=== PATIENT | female | born 1995 | race Caucasian/White ===

== ENCOUNTER 2021-01-19 13:34 | Emergency (ER) | payer OTHER, SELFPAY ==
[2021-01-19 13:42] VITALS: BP 144/78; PULSE 107; RESP 20; TEMP 36.7; O2SAT 99
--- NOTE | 2021-01-19 13:44 | ED.URI ---
HPI - URI/Sore Throat General Chief Complaint: Upper Respiratory Infection Stated Complaint: Sore Throat and congestion Source: patient and RN notes reviewed Limitations: no limitations History of Present Illness HPI Narrative: The unvaccinated patient, non-smoker/nondrinker G3, P2 EDC 24 March, presents with scratchy throat and congestion. Patient states she has 1/2-week of sore throat primarily and some nasal congestion. No fever, earache, cough, loss of taste/smell, CP, vomiting/diarrhea, frequency/dysuria, decreased activity, abdominal pain, vaginal discharge. Symptoms are mild, worse upon eating. history is remarkable for penicillin and latex allergy; also -induced hypertension- for which she is on aspirin. Related Data Home Medications Medication Instructions Recorded Confirmed PNV cmb#95-ferrous fumarate-FA 1 tablet PO DAILY 01/19/21 01/19/21 [] Allergies Allergy/AdvReac Type Severity Reaction Status Date / Time amoxicillin Allergy Intermediate rash Verified 01/19/21 13:54 latex Allergy Mild Swelling Verified 01/19/21 13:54 Review of Systems Review of Systems: General/Constitutional: No weight loss,fever Eyes: N0: Redness,discharge Ears/Nose/Throat: No: Epistaxis,ear discharge Respiratory: Denies: Hemoptysis Gastrointestinal: No Vomiting, Bleeding-rectal Skin: No Lumps, eruption Neurologic: No Focal Weakness,Sz Hematologic: Denies: Petechiae/Purpura Psychiatric: No: Suicida ideationl All Other Systems: Reviewed and Negative PMFSH Comments At time of signature, agree with nursing past medical, surgical, social and family history. There is no relevant family history pertinent to the presenting complaint Exam Narrative: General Appearance: Well appearing, Well nourished, gravid EYE: PERRLA, Conjunctiva clear Ears: Auditory canal normal, TM normal Nose: Rhinorrhea, Mucousal erythema Mouth/Throat: MM moist, Uvula midline, Pharyngeal erythema Neck: Supple, No adenopathy Respiratory: No respiratory distress, Breath sounds equal, Clear to auscultation Cardiovascular: RRR, No JVD GI/: Soft, nontender Musculoskeletal: Non tender, Normal strength Skin: Warm, Dry Neurological: A&O x3, CN II-XII intact Psychiatric: Normal mood, Normal affect Course Vital Signs Vital signs: Vital Signs Temperature 98.0 F 01/19/21 13:42 Pulse Rate 107 H 08/05/21 13:42 Respiratory Rate 20 01/19/21 13:42 Blood Pressure 144/78 H 01/19/21 13:42 Pulse Oximetry 99 01/19/21 13:42 Temperature 98.0 F 01/19/21 13:42 Pulse Rate 107 H 01/19/21 13:42 Respiratory Rate 20 01/19/21 13:42 Blood Pressure 144/78 H 01/19/21 13:42 Pulse Oximetry 99 01/19/21 13:42 MDM - URI/Sore Throat Lab Data Labs: Lab Results 01/19/21 Range/Units Unknown POC SARS CoV-2 Ag Negative (Negative) Strep Screen Presumptive Negative *(Reference Range: Negative)* Discharge Plan Discharge Clinical Impression: Swallowing painful, Elevated blood pressure affecting in third trimester, antepartum Complication of Qualifiers: Trimester: unspecified trimester Qualified Code(s): O26.90 - related conditions, unspecified, unspecified trimester Patient Disposition: Home, Self-Care Condition: Stable Instructions: Pharyngitis (ED) Additional Instructions: You can use OTC preparations like Flonase, etc. Do home checks of your blood pressure Prescriptions: New cefdinir 300 mg capsule 300 mg PO Q12H Qty: 10 RF: 0 lidocaine HCl [Lidocaine Viscous] 2 % solution 5 ml MUCOUS MEM QID PRN (Reason: pain) Qty: 100 RF: 0 No Action PNV cmb#95-ferrous fumarate-FA [] 28 mg iron- 800 mcg Tablet 1 tablet PO DAILY RF: 0 Other Ambulatory Orders: SARS-CoV-2 RNA, Qual RT-PCR (Routine) Location: Determined by Patient Ordered By: Brennen Pandya
== END 2021-01-19 14:48 | disposition home or self-care (01) ==
PROVIDERS: Emergency Provider Emergency Medicine
DX: O99.63 Diseases of the digestive system complicating the puerperium (principal); R13.10 Dysphagia, unspecified; O13.3 Gestational [pregnancy-induced] hypertension without significant proteinuria, third trimester; Z3A.31 31 weeks gestation of pregnancy; O26.93 Pregnancy related conditions, unspecified, third trimester; Z20.822 Contact with and (suspected) exposure to COVID-19
CPT/HCPCS: 87081; 87426; 87880; 99213; C9803; G0463

== ENCOUNTER 2021-02-27 18:10 | Observation (INO) | payer OTHER, SELFPAY ==
[2021-02-27] VITALS (15 sets, daily range): BP systolic 100–135; BP diastolic 56–82; PULSE 71–90
--- NOTE | ~2021-02-27 | US_ITS ---
US OB limited DATE: 02/27/2021 21:02 INDICATION: Fall. TECHNIQUE: Real-time imaging and Doppler analysis COMPARISON: None FINDINGS: There is a live alvarez intrauterine gestation, fetus in vertex presentation, longitudina l lie. heart rate of 142 bpm. Placenta is posterior; no evidence of abnormal retroplacental flu id collection. Three-vessel umbilical cord. There is a subjectively normal amount of amniotic fluid. IMPRESSION: No significant abnormality of the placenta Reviewed, dictated and finalized at [facility]. Reviewed, dictated and finalized at [facility].
[2021-02-28 00:01] VITALS: BP 122/68; PULSE 76
[2021-02-28 01:01] VITALS: BP 106/63; PULSE 82
[2021-02-28 03:01] VITALS: BP 98/59; PULSE 92
[2021-02-28 05:28] VITALS: BP 123/69; PULSE 80
[2021-02-28 08:04] VITALS: TEMP 36.3
[2021-02-28 08:49] VITALS: BMI 41.3
--- NOTE | 2021-02-28 08:53 | OBADM ---
This patient, Cuba Murguia, admitted to the OB room OB Post 112 for observation. Patient/family oriented to hospital policies and general routines including ID bracelet, bed and alarms, visiting hours, pain management, procedures, bathroom and other care routines, personal items, smoking policy, room service/diet, and visiting hours. Patient/Family are encouraged to report perceived risks to care and to ask questions if they do not understand what they are told or what they should do.
--- NOTE | 2021-02-28 08:58 | PC.NURSE ---
0800-KRadha RUEDA on unit, reviewed pt's fhr strip from over night. Discharge orders received.
--- NOTE | 2021-03-26 09:54 | PM.OBTRLD ---
OB - Triage/Final Diagnosis Visit Information Comments/Additional reasons for admission: I have assessed the risk for this patient, [place] Murgu[place], and determined that she would benefit from observation care. Evaluation Laboratory results: Laboratory Tests 02/27/21 19:39 Blood Type O Positive Antibody Screen Negative Final Diagnosis (1) Fall: Code(s): W19.XXXA - Unspecified fall, initial encounter Status: Acute
== END 2021-02-28 08:25 | disposition home or self-care (01) ==
PROVIDERS: Admitting Provider Obstetrics & Gynecology; Visit Provider Obstetrics & Gynecology
DX: Z04.3 Encounter for examination and observation following other accident (principal); O26.899 Other specified pregnancy related conditions, unspecified trimester; W19.XXXA Unspecified fall, initial encounter; Z3A.00 Weeks of gestation of pregnancy not specified
CPT/HCPCS: 36415; 76815; 86850; 86900; 86901; G0378; G0379

== ENCOUNTER 2021-03-05 13:19 | Outpatient (CLI) | payer OTHER, SELFPAY ==
[2021-03-05 14:10] VITALS: BP 130/74; PULSE 97
== END 2021-03-05 14:15 | disposition home or self-care (01) ==
LOC: ANHOBOP 13:56 → ANHLDR 13:57
PROVIDERS: Visit Provider Obstetrics & Gynecology
DX: O41.8X31 Other specified disorders of amniotic fluid and membranes, third trimester, fetus 1 (principal); Z3A.37 37 weeks gestation of pregnancy
CPT/HCPCS: 59025; 84112; 99199

== ENCOUNTER 2021-03-10 06:00 | Inpatient (IN) | payer OTHER, SELFPAY ==
[2021-03-10] VITALS (109 sets, daily range): BP systolic 96–149; BP diastolic 40–111; PULSE 65–108; RESP 16–18; TEMP 36.4–36.8; O2SAT 96–100; BMI 41.2
--- OUTSIDE RECORDS SUMMARY | 2021-03-10 06:04 | XMS_ITS | Encounter Summary ---
:1995 Author Reason for Visit None recorded. Assessment and Plan 1. Chronic hypertension complica ting AND/OR reason for care during ? non-stress test Discussion Note: None recorded.Patient educational handouts: No information available. Plan of Care Reminders Provider Appointments Ob Routine Wendie Tanner, 03/17/2021 CNM 2:45PM Lab None ? ? recorded. Referral None ? ? recorded. Procedures None ? ? recorded. Surgeries None ? ? recorded. Imaging Non-stress [facility] [facility] Test 03/07/2021 Medications Name Start Date ? ? Lidocaine Viscous 2 % mucosal solution ? GARGLE AND SPIT 5 ML BY MOUTH FOUR TIMES DAILY NEE DED ? Medications Administered None recorded. Vitals None recorded. Results Lab Results None recorded. Allergies Code Code System Name Reaction Severity Onset 723 RxNorm Amoxicillin Rash Mild ? Problems Name Status Onset Date Source ? Hypertensive Disorder Active ? ? Maternal Obesity Complicating , Childbirth Active ? ? and the Puerperium, Antepa
--- OUTSIDE RECORDS SUMMARY | 2021-03-10 06:04 | XMS_ITS ---
:1995 Author Care Team Providers Name Role Phone Flores Catherine Ashley Primary Care Provider Unavailable Allergies Code Code System Name Reaction Severity Status Onset 723 RxNorm Amoxicillin Rash Mild Active ? Medications Name Status Start Date Stop Date ? ? amoxicillin 875 mg tablet Completed 02/23/20142013 take 1 tablet by oral route every 12 hours cefdinir 300 mg capsule Completed ? 02/18/20 TAKE 1 CAPSULE BY MOUTH EVERY 12 HOURS clindamycin HCl 300 mg capsule Completed ? 0 08/08/2020 Depo-Provera 150 mg/mL intramuscular suspension Completed 10/04/2014 08/29/2017 inject 1 milliliter by intramuscular route every 3 months Depo-Provera 150 mg/mL intramuscular syringe Completed 08/29/2017 inject 1 milliliter by intramuscular route every 3 months Flagyl 500 mg tablet Completed ? 08/08/2020 Take 1 tablet every 12 hours by oral route for 7 days. Lidocaine Viscous 2 % mucosal solution Active ? Not available GARGLE AND SPIT 5 ML BY MOUTH FOUR TIMES DAILY NEEDED Active ? Not available One Daily 27 mg iron-800 mcg tablet Completed ? 12/23/2013 take 1 tablet by oral route every day Triveen-Duo DHA 29 mg-1 mg-400 mg oral pack Completed 02/201401/21/2014 take 2 by Oral route once for 30 days Tylenol 325 mg tablet Completed ? 04/02/2018 take 1 tablet by oral route every 4 hours as needed [employer]-PNV-DHA 28 mg iron-1 mg-200 mg capsule Completed 201708/08/2020 take 1 capsule by oral route every day Problems
--- OUTSIDE RECORDS SUMMARY | 2021-03-10 06:04 | XMS_ITS | Encounter Summary ---
:1995 Author Reason for Visit None recorded. Assessment and Plan 1. Placenta circumvallata ? US, obstetric, follow-up Discussion Note: None recorded.Patient educational handouts: No information available. Plan of Care Reminders Provider Appointments Ob Routine Wendie Tanner, 03/17/2021 CNM 2:45PM Lab None ? ? recorded. Referral None ? ? recorded. Procedures None ? ? recorded. Surgeries None ? ? recorded. Imaging [facility] Obstetric, Follow-up 03/03/2021 Medications Name Start Date ? ? Lidocaine [...] Childbirth Active ? ? and the Puerperium, Antepartum Procedures Date
--- OUTSIDE RECORDS SUMMARY | 2021-03-10 06:04 | XMS_ITS | Encounter Summary ---
:1995 Author Reason for Visit OB visit OB [id number] EDC 03/24/2021 LMP 06/17/2020 Assessment and Plan Assessment Note Patient is _37__weeks . Dis cussed plan. 1. Routine care Discussion Note: None recorded.Patient educational handouts: No information available. Plan of Care Reminders Provider Appointments Ob Routine Wendie Tanner, 03/17/2021 CNM 2:45PM Lab None ? ? recorded. Referral None ? ? recorded. Procedures None ? ? recorded. Surgeries None ? ? recorded. Imaging None ? ? recorded. Medications Name Start Date ? ? Lidocaine Viscous 2 % mucosal solution ? GARGLE AND SPIT 5 ML BY MOUTH FOUR TIMES DAILY NEE DED ? Medications Administered None recorded. Vitals Height Weight BMI Blood Pressure 5 ft 3.5 in 250 lbs 43.6 kg/m2 132/85 mm[Hg] Results Lab Results None recorded. Allergies Code Code System Name Reaction Severity Onset 723 RxNorm Amoxicillin Rash Mild ? Problems Name Status Onset Date Source ? Hypertensive Disorder Active ? ?
--- OUTSIDE RECORDS SUMMARY | 2021-03-10 06:05 | XMS_ITS | Encounter Summary ---
[...] ? recorded. Imaging Non-stress [facility] Test 02/24/2021 Medications Name Start Date ? ? Lidocaine Viscous 2 % mucosal solution ? GARGLE AND SPIT 5 ML BY MOUTH FOUR TIMES DAILY NEE DED ? Medications Administered None recorded. Vitals Blood Pressure 146/88 mm[Hg] Results Lab Results None recorded. Allergies Code Code System Name Reaction Severity Onset 723 RxNorm Amoxicillin Rash Mild ? Problems Name Status Onset Date Source ? Hypertensive Disorder Active ? ? Maternal Obesity
--- OUTSIDE RECORDS SUMMARY | 2021-03-10 06:05 | XMS_ITS | Encounter Summary ---
[...] Surgeries None ? ? recorded. Imaging Non-stress Linus lle Test 02/07/2021 Medications Name Start Date ? ? Lidocaine [...] Childbirth Active ? ? and the Puerperium, Antepart
--- OUTSIDE RECORDS SUMMARY | 2021-03-10 06:05 | XMS_ITS | Encounter Summary ---
:1995 Author Reason for Visit None recorded. Assessment and Plan 1. condition affecting obs tetrical care of mother ? US, obstetric, biophysical profile Discussion Note: None recorded.Patient educational handouts: No information available. Plan of Care Reminders Provider Appointments Ob Routine Wendie Tanner, 03/17/2021 CNM 2:45PM Lab None recorded. ? ? Referral None recorded. ? ? Procedures None recorded. ? ? Surgeries None recorded. ? ? [facility] Profile 02/24/2021 Medications Name Start Date ? ? [...]
--- OUTSIDE RECORDS SUMMARY | 2021-03-10 06:05 | XMS_ITS | Encounter Summary ---
[...] ? recorded. Imaging Non-stress Linus lle Test 02/03/2021 Medications Name Start Date ? ? Lidocaine [...]
--- OUTSIDE RECORDS SUMMARY | 2021-03-10 06:05 | XMS_ITS | Encounter Summary ---
:1995 Author Reason for Visit OB visit OB [id number] EDC 03/24/2021 LMP 06/17/2020 Assessment and Plan 1. Hypertensive disorder 2. Maternal obesity complicating , childbirth and the puerperium, antepartum Discussion Note: None recorded.Patient educational handouts: No [...] BMI Blood Pressure 5 ft 3.5 in 249 lbs 43.4 kg/m2 (1) 145/91 mm[H g] (2) 158/64 mm[Hg ] Results Lab Results None recorded. Allergies Code Code System Name Reaction Severity Onset 723 RxNorm Amoxicillin Rash Mild ? Problems Name Status Onset Date Source ?
--- OUTSIDE RECORDS SUMMARY | 2021-03-10 06:05 | XMS_ITS | Encounter Summary ---
:1995 Author Reason for Visit None recorded. Assessment and Plan 1. Maternal obesity complicating , childbirth and the puerperium, antepartum ? non-stress test Discussion Note: None recorded.Patient educational handouts: No information available. Plan of Care Reminders Provider Appointments Ob Routine Wendie Tanner, 03/17/2021 CNM 2:45PM Lab None ? ? recorded. Referral None ? ? recorded. Procedures None ? ? recorded. Surgeries None ? ? recorded. Imaging Non-stress [place]le Test 02/28/2021 Medications Name Start Date ? ? Lidocaine Viscous 2 % mucosal solution ? GARGLE AND SPIT 5 ML BY MOUTH FOUR TIMES DAILY NEE DED ? Medications Administered None recorded. Vitals Height Weight BMI Blood Pressure 5 ft 3.5 in 251 lbs 43.8 kg/m2 129/82 mm[Hg] Results Lab Results None recorded. Allergies Code Code System Name Reaction Severity Onset 723 RxNorm Amoxicillin Rash Mild ? Problems Name Status Onset Date Source ? Hypertensive Disorder Active ?
--- OUTSIDE RECORDS SUMMARY | 2021-03-10 06:05 | XMS_ITS | Encounter Summary ---
:1995 Author Reason for Visit OB visit OB [id number] EDC 03/24/2021 LMP 06/17/2020 Assessment and Plan Assessment Note Patient is __34_weeks . Dis cussed plan. 1. Routine care [...] BMI Blood Pressure 5 ft 3.5 in 248 lbs 43.2 kg/m2 133/88 mm[Hg] Results Lab Results None recorded. Allergies Code Code System Name Reaction Severity Onset 723 RxNorm Amoxicillin Rash Mild ? Problems Name Status Onset Date Source ? Hypertensive Disorder Active ? ?
--- OUTSIDE RECORDS SUMMARY | 2021-03-10 06:05 | XMS_ITS | Encounter Summary ---
:1995 Author Reason for Visit OB visit Assessment and Plan 1. Maternal obesity complicating , childbirth and the puerperium, antepartum 2. Hypertensive disorder Discussion Note: None recorded.Patient educational handouts: No information available. Plan of Care Reminders Provider Appointments Ob Routine Wendie austin Ashley Tanner, 03/17/2021 CNM 2:45PM Lab None ? [...] BMI Blood Pressure 5 ft 3.5 in 246 lbs 42.9 kg/m2 126/76 mm[Hg] Results Lab Results None recorded. Allergies Code Code System Name Reaction Severity Onset 723 RxNorm Amoxicillin Rash Mild ? Problems Name Status Onset Date Source ? Hypertensive Disorder Active ? ? Maternal Obesity Complicating , Childbirth Ac
--- OUTSIDE RECORDS SUMMARY | 2021-03-10 06:05 | XMS_ITS | Encounter Summary ---
[...] Surgeries None ? ? recorded. Imaging Non-stress e[place]ino lle Test 02/21/2021 Medications Name Start Date ? ? Lidocaine [...] Childbirth Active ? ? and the Puerperium, Antepar
--- OUTSIDE RECORDS SUMMARY | 2021-03-10 06:05 | XMS_ITS | Encounter Summary ---
[...] ? recorded. Imaging Non-stress Linus lle Test 02/10/2021 Medications Name Start Date ? ? Lidocaine Viscous 2 % mucosal solution ? GARGLE AND SPIT 5 ML BY MOUTH FOUR TIMES DAILY NEE DED ? Medications Administered None recorded. Vitals Height 5 ft 3.5 in Results Lab Results None recorded. Allergies Code Code System Name Reaction Severity Onset 723 RxNorm Amoxicillin Rash Mild ? Problems Name Status Onset Date Source ? Hypertensive Disorder Active ? ? Maternal Obesity Complicatin
--- OUTSIDE RECORDS SUMMARY | 2021-03-10 06:05 | XMS_ITS | Encounter Summary ---
:1995 Author Reason for Visit OB visit OB [id number] EDC 03/24/2021 LMP 06/17/2020 Assessment and Plan Assessment Note Patient is _35__weeks . Dis cussed plan. 1. Routine care [...] ft 3.5 in 250 lbs 43.6 kg/m2 131/82 mm[Hg] Results Lab Results None recorded. Allergies Code Code System Name Reaction Severity Onset 723 RxNorm Amoxicillin Rash Mild ? Problems Name Status Onset Date Source ? Hypertensive Disorder Active ? ?
--- OUTSIDE RECORDS SUMMARY | 2021-03-10 06:05 | XMS_ITS | Encounter Summary ---
[...] ? recorded. Imaging Non-stress Linus lle Test 02/14/2021 Medications Name Start Date ? ? Lidocaine Viscous 2 % mucosal solution ? GARGLE AND SPIT 5 ML BY MOUTH FOUR TIMES DAILY NEE DED ? Medications Administered None recorded. Vitals Blood Pressure 123/71 mm[Hg] Results Lab Results None recorded. Allergies Code Code System Name Reaction Severity Onset 723 RxNorm Amoxicillin Rash Mild ? Problems Name Status Onset Date Source ? Hypertensive Disorder Active ? ? Maternal Obesity C
--- OUTSIDE RECORDS SUMMARY | 2021-03-10 06:05 | XMS_ITS | Encounter Summary ---
[...] ? recorded. Imaging Non-stress [facility] lle Test 03/03/2021 Medications Name Start Date ? ? [...]
--- OUTSIDE RECORDS SUMMARY | 2021-03-10 06:05 | XMS_ITS | Encounter Summary ---
:1995 Author Reason for Visit None recorded. Assessment and Plan 1. Maternal obesity complicating , childbirth and the puerperium, antepartum ? US, obstetric, follow-up Discussion Note: None recorded.Patient educational handouts: No information available. Plan of Care Reminders Provider Appointments Ob Routine Wendie Tanner, 03/17/2021 CNM 2:45PM Lab None ? ? recorded. Referral None ? ? recorded. Procedures None ? ? recorded. Surgeries None ? ? recorded. Imaging , [facility] Obst[facility], Follow-up 02/03/2021 Medications Name Start Date ? ? [...] , Childbirth Active ? ? and the Puerper
--- OUTSIDE RECORDS SUMMARY | 2021-03-10 06:05 | XMS_ITS | Encounter Summary ---
[...] ? recorded. Imaging Non-stress [place] lle Test 02/17/2021 Medications Name Start Date ? ? Lidocaine [...]
--- OUTSIDE RECORDS SUMMARY | 2021-03-10 06:06 | XMS_ITS | Encounter Summary ---
:1995 Author Reason for Visit OB visit [id number] Assessment and Plan 1. Routine care Discussion Note: None recorded.Patient [...] Medications Administered None recorded. Vitals Height Weight Blood Pressure 5 ft 3.5 in 243 lbs 136/84 mm[Hg] Results Lab Results None recorded. Allergies Code Code System Name Reaction Severity Onset 723 RxNorm Amoxicillin Rash Mild ? Problems Name Status Onset Date Source ? Hypertensive Disorder Active ? ? Maternal Obesity Complicating , Childbirth Active ? ? and the Puerperium, Antepartum Procedures
--- OUTSIDE RECORDS SUMMARY | 2021-03-10 06:06 | XMS_ITS | Encounter Summary ---
:1995 Author Reason for Visit OB visit Assessment and Plan Assessment Note Patient is _27__weeks . Dis cussed plan. 1. Routine care [...] BMI Blood Pressure 5 ft 3.5 in 241 lbs 42 kg/m2 134/80 mm[Hg] Results Lab Results None recorded. Allergies Code Code System Name Reaction Severity Onset 723 RxNorm Amoxicillin Rash Mild ? Problems Name Status Onset Date Source ? Hypertensive Disorder Active ? ? Maternal Obesity Complicating , Childbirth Active
--- OUTSIDE RECORDS SUMMARY | 2021-03-10 06:06 | XMS_ITS | Encounter Summary ---
:1995 Author Reason for Visit None recorded. Assessment and Plan 1. Abnormal heart rate ? US, obstetric, biophysical profile + non-stress test Discussion Note: None recorded.Patient educational handouts: No information available. Plan of Care Reminders Provider Appointments Ob Routine Wendie Tanner, 03/17/2021 CNM 2:45PM Lab None recorded. ? ? Referral None recorded. ? ? Procedures None recorded. ? ? Surgeries None recorded. ? ? Imaging US, Obstetric, [facility] Biophysical Profile + 01/27/2021 Non-stress Test Medications Name Start Date ? ? Lidocaine [...]
--- OUTSIDE RECORDS SUMMARY | 2021-03-10 06:06 | XMS_ITS | Encounter Summary ---
[...] ? recorded. Imaging Non-stress Linus lle Test 01/31/2021 Medications Name Start Date ? ? Lidocaine Viscous 2 % mucosal solution ? GARGLE AND SPIT 5 ML BY MOUTH FOUR TIMES DAILY NEE DED ? Medications Administered None recorded. Vitals Blood Pressure 138/79 mm[Hg] Results Lab Results None recorded. Allergies Code Code System Name Reaction Severity Onset 723 RxNorm Amoxicillin Rash Mild ? Problems Name Status Onset Date Source ? Hypertensive Disorder Active ? ? Maternal Obesity C
--- OUTSIDE RECORDS SUMMARY | 2021-03-10 06:06 | XMS_ITS | Encounter Summary ---
[...] ? recorded. Imaging Non-stress [place] lle Test 01/27/2021 Medications Name Start Date ? ? Lidocaine Viscous 2 % mucosal solution ? GARGLE AND SPIT 5 ML BY MOUTH FOUR TIMES DAILY NEE DED ? Medications Administered None recorded. Vitals Blood Pressure (1) 142/91 mm[Hg] (2) 121/92 mm[Hg] (3) 132/84 mm[Hg] Results Lab Results None recorded. Allergies Code Code System Name Reaction Severity Onset 723 RxNorm Amoxicillin Rash Mild ? Problems Name Status Onset Date Source ?
--- OUTSIDE RECORDS SUMMARY | 2021-03-10 06:06 | XMS_ITS | Encounter Summary ---
:1995 Author Reason for Visit OB visit Assessment and Plan 1. Routine care Discussion [...] BMI Blood Pressure 5 ft 3.5 in 244 lbs 42.5 kg/m2 128/81 mm[Hg] Results Lab Results None recorded. Allergies Code Code System Name Reaction Severity Onset 723 RxNorm Amoxicillin Rash Mild ? Problems Name Status Onset Date Source ? Hypertensive Disorder Active ? ? Maternal Obesity Complicating , Childbirth Active ? ? and the Puerperium, Antepartum Procedures None recorded. Vaccine List None re
[2021-03-10] MEDS: LACTATED RINGERS 1,000 ML 125 ML IV CONT ×3 (06:45→09:34)
[2021-03-10] MEDS: OXYTOCIN 30 UNITS/NS 500 ML 30 UNITS/500 ML BAG IV CONT (06:45)
[2021-03-10 06:46] LABS: Basophils Percent Auto 0.3 % (0.2-1.2); Eosinophils Absolute Auto 0.3 K/mm3 (0-0.3); Eosinophils Percent Auto 2.7 % (0-4.4); Hematocrit 35.4 % (37.0-47.0); Hemoglobin 11.8 g/dL (12.0-15.0); Immature Granulocyte Absolute 0.04 K/mm3 (0.00-0.031); Immature Granulocyte Percent A 0.3 % (0-0.5); Lymphocytes Absolute Auto 2.26 K/mm3 (0.9-3.2); Lymphocytes Percent Auto 19.1 % (18.3-44.2); Mean Corpuscular HGB Conc 33.3 g/dl (32-36); Mean Corpuscular Hemoglobin 29.5 pg (26-34); Mean Corpuscular Volume 88.5 fl (80-100); Mean Platelet Volume 11.8 fl (7.4-10.4); Monocytes Absolute Auto 0.7 K/mm3 (0.1-0.6); Monocytes Percent Auto 5.6 % (2.6-8.5); Neutrophils Absolute Auto 8.6 K/mm3 (1.3-6.7); Platelet Count Result 176 k/mm3 (150-375); Red Cell Distribution Width 13.9 % (11.5-14.5); White Blood Count 11.9 K/mm3 (4.5-10.0)
[2021-03-10 06:58] LABS: Uric Acid 5.4 mg/dL (2.5-7.5)
--- NOTE | 2021-03-10 07:31 | WPDANESEPP ---
Anes - Eval Pre Procedure Procedure: labor pain management Date/Time: 03/10/21 07:31 Surgeon: Drea Preop Diagnosis: pain during labor Pre Op Diagnosis: IOL Patient Data Age: 25 Gender: F Height: 1.63 m Weight: 109 kg Last Vital Signs Pulse 88 03/10/21 07:16 BP 135/75 03/10/21 07:16 Allergies Allergy/AdvReac Type Severity Reaction Status Date / Time amoxicillin Allergy Intermediate rash Verified 01/19/21 13:54 latex Allergy Mild Swelling Verified 01/19/21 13:54 Home Medications Medication Instructions Recorded Confirmed Type PNV cmb#95-ferrous fumarate-FA 1 tablet PO DAILY 01/19/21 01/19/21 History [] ferrous sulfate 325 mg PO DAILY 02/28/21 02/28/21 History Laboratory Tests 03/10/21 03/10/21 03/10/21 06:19 06:19 06:19 WBC 11.9 K/mm3 H K/mm3 (4.5-10.0) RBC 4.00 M/mm3 L M/mm3 (4.2-5.4) Hgb 11.8 g/dL L g/dL (12.0-15.0) Hct 35.4 % L % (37.0-47.0) MCV 88.5 fl fl (80-100) MCH 29.5 pg pg (26-34) MCHC 33.3 g/dl g/dl (32-36) RDW 13.9 % % (11.5-14.5) Plt Count 176 k/mm3 k/mm3 (150-375) MPV 11.8 fl H fl (7.4-10.4) Immature Gran % (Auto) 0.3 % % (0-0.5) Neut % (Auto) 72.0 % % (45.5-73.1) Lymph % (Auto) 19.1 % % (18.3-44.2) Fisher % (Auto) 5.6 % % (2.6-8.5) Eos % (Auto) 2.7 % % (0-4.4) Baso % (Auto) 0.3 % % (0.2-1.2) Lymph # (Auto) 2.26 K/mm3 K/mm3 (0.9-3.2) Fisher # (Auto) 0.7 K/mm3 H K/mm3 (0.1-0.6) Eos # (Auto) 0.3 K/mm3 K/mm3 (0-0.3) Baso # (Auto) 0.0 K/mm3 K/mm3 (0.0-0.1) Abs Immat Gran (auto) 0.04 K/mm3 H K/mm3 (0.00-0.031) Absolute Neuts (auto) 8.6 K/mm3 H K/mm3 (1.3-6.7) Absolute Nucleated RBC 0.0 K/mm3 K/mm3 (0.0-0.012) Nucleated RBC % 0.0 % % (0.0-0.2) Uric Acid 5.4 mg/dL mg/dL (2.5-7.5) RPR Pending : gestational age (edc 03/24/21) Patient hx anesthesia problems: none Family hx anesthesia problems: none Results Review: All pre-operative results and documents have been reviewed as part of the pre-operative evaluation. [facility] Past Medical History Medical History (Updated 03/10/21 @ 07:33 by Liane Vaughn CRNA) Hypertension Family History Family History (Updated 02/28/21 @ 12:36 by Erorl Raines RN) Grandparent Diabetes mellitus Mother Diabetes mellitus Arthritis Social History Social History Smoking status: Never smoker Second hand tobacco smoke exposure: No Substance use: never Spiritual care concerns: No Exam Day of Procedure 03/10/21 07:31
--- NOTE | 2021-03-10 07:34 | WPDOBADMIT ---
Obstetrics - Admit Note Admission Note: record reviewed. No pertinent additions to the history and/or any subsequent changes in the physical findings that are not consistent with the expected course of the were found. CHTN, 38 weeks gestation, SVE /-2, AROM moderate amount of clear odorless fluid Additions to the history and/or subsequent changes in the physical findings follow. None.
[2021-03-10 12:44] LABS: Alanine Aminotransferase 12 U/L (4-35); Albumin Level 3.8 g/dL (3.5-5.1); Alkaline Phosphatase 86 U/L (38-126); Anion Gap 11 mmol/L (8-16); Aspartate Amino Transferase 23 U/L (14-36); Bilirubin,Total 0.5 mg/dL (0.2-1.3); Blood Urea Nitrogen 9 mg/dL (7-17); Calcium 8.9 mg/dL (8.4-10.2); Carbon Dioxide 18 mmol/L (22-30); Chloride 107 mmol/L (98-107); Estimated CRCL calculation 130 ml/min; Estimated Glomerular Filt Rate > 60; Glucose 105 mg/dL (65-110); Potassium 3.6 mmol/L (3.4-5.0); Sodium 136 mmol/L (137-145)
--- NOTE | 2021-03-10 13:25 | PM.OBPRVD ---
OB - Delivery Note Procedure Delivery date: 03/10/21 Procedure: vaginal delivery Intrapartal events: None Induction method: AROM and per pitocin protocol Delivery monitor: external FHT, external uterine and internal uterine Route of delivery: Episiotomy description: None Laceration Description: None Specimen: Yes Quantitative Blood Loss (ml): 85 Anesthesia type: Epidural Disposition: floor Baby Date of : 03/10/21 Time of : 13:16 Weeks of gestation at delivery: 38 Infant gender: Female Weight (pounds): 6 Weight (ounces): 10 presentation: vertex position: Right Occiput Anterior Placenta delivery description: Spontaneous cord vessel description: 3 Vessels and Clamped/Cut Narrative: mother and baby skin to skin delayed cord clamping x 3 minutes, in stable condition
[2021-03-10] MEDS: OXYTOCIN 30 UNITS/NS 500 ML 30 UNITS/500 ML BAG 125 UNITS IV CONT (13:40)
[2021-03-10 13:53] LABS: Rapid Plasma Reagin Non-Reactive (NonReactive)
[2021-03-10] MEDS: BENZOCAINE 20% AER SPR (*SP) 56 GM CAN 1 SPRAY TOPICAL (15:33)
[2021-03-10] MEDS: WITCH HAZEL 40 PADS 1 PAD TOPICAL (15:33)
[2021-03-10] MEDS: IBUPROFEN 600 MG TABLET PO (16:40)
--- NOTE | 2021-03-10 16:42 | OBPPTRN ---
1600-Patient transferred to post room #277 via wheelchair. Support person present. Oriented to unit, room, information board, rooming in, admission packet and security measures. Patient verbalizes understanding.
[2021-03-11 00:15] VITALS: BP 115/73; PULSE 62; RESP 18; TEMP 36.2; O2SAT 100
[2021-03-11] MEDS: IBUPROFEN 600 MG TABLET PO ×2 (01:52→09:04)
[2021-03-11 04:30] VITALS: BP 115/78; PULSE 70; RESP 18; TEMP 36.2; O2SAT 100
[2021-03-11 05:24] LABS: Hematocrit 31.9 % (37.0-47.0); Hemoglobin 10.6 g/dL (12.0-15.0)
[2021-03-11 08:00] VITALS: BP 122/70; PULSE 73; RESP 16; TEMP 36.4; O2SAT 99
--- NOTE | 2021-03-11 08:25 | P.PNOB_ITS ---
OB - PN: Subj Subjective Date/time seen: 03/11/21 08:25 Patient comments: no complaints and pain well controlled baby status: doing well and nursing well [place] feeding status: exclusively breast feeding Narrative: wants DC home later today OB - PN: Obj Data Labs CBC & Chem 7: 03/11/21 04:36 03/10/21 06:19 Labs: Laboratory Results - last 24 hr 03/10/21 03/10/21 03/10/21 06:19 06:19 06:19 Hgb Hct Sodium 136 L Potassium 3.6 Chloride 107 Carbon Dioxide 18 L Anion Gap 11 BUN 9 Creatinine 0.70 Estim Creat Clear Calc 130 Estimated GFR > 60 Glucose 105 Calcium 8.9 Total Bilirubin 0.5 AST 23 ALT 12 Alkaline Phosphatase 86 Total Protein 6.0 L Albumin 3.8 RPR Non-reactive Blood Type O Positive Antibody Screen Negative 03/11/21 04:36 Hgb 10.6 L Hct 31.9 L Sodium Potassium Chloride Carbon Dioxide Anion Gap BUN Creatinine Estim Creat Clear Calc Estimated GFR Glucose Calcium Total Bilirubin AST ALT Alkaline Phosphatase Total Protein Albumin RPR Blood Type Antibody Screen OB - PN A/P Assessment and Plan (1) , delivered: Code(s): O80 - Encounter for full-term uncomplicated delivery Status: Acute Plan day: 1 Plan: routine care and discharge home Time Spent With Patient Time: Total time spent is greater than 50% in coordination of care (as documented) at patient's floor/unit and/or counseling patient: Time with patient: less than 15 minutes Exam Narrative: NAD abdomen soft, nontender, fundus firm below the umbilicus Extremities nontender, 1+ edema
--- NOTE | 2021-03-11 08:27 | P.DS_ITS ---
DS: Admitting Diagnosis Discharge Date 03/11/2021 Admitting Diagnosis term IUP, cHTN DS: Discharge Diagnosis Discharge Diagnosis (1) , delivered: Code(s): O80 - Encounter for full-term uncomplicated delivery Status: Acute OB - DS: Summary OB Procedures : Ultrasound OB Procedures Intrapartum: Spontaneous Vag Delivery OB Procedures: : None Peripartum Data Delivery Method: Natural Vaginal complications: none Status at Discharge Functional status at discharge: independent ambulation Time Spent with Patient Time attestation: Total time spent providing and/or coordinating discharge services: Exam Narrative: NAD abdomen soft, appropriately tender Ext non tender, 1+ edema DS: Data Data Completed and Pending Pending studies at discharge: Pending at discharge 03/10/21 13:20 Surgical [PTH] Routine Labs on day of discharge: Labs from last 24 hours 03/11/21 03/10/21 03/10/21 04:36 06:19 06:19 Hgb 10.6 L Hct 31.9 L Sodium 136 L Potassium 3.6 Chloride 107 Carbon Dioxide 18 L Anion Gap 11 BUN 9 Creatinine 0.70 Estim Creat Clear Calc 130 Estimated GFR > 60 Glucose 105 Calcium 8.9 Total Bilirubin 0.5 AST 23 ALT 12 Alkaline Phosphatase 86 Total Protein 6.0 L Albumin 3.8 RPR Blood Type O Positive Antibody Screen Negative 03/10/21 06:19 Hgb Hct Sodium Potassium Chloride Carbon Dioxide Anion Gap BUN Creatinine Estim Creat Clear Calc Estimated GFR Glucose Calcium Total Bilirubin AST ALT Alkaline Phosphatase Total Protein Albumin RPR Non-reactive Blood Type Antibody Screen Discharge Plan Discharge Attending physician on discharge: Silva Ying Discharging Clinician: Silva Ying Anticipated Discharge Date/Time: 03/11/21 15:00 Patient Disposition: Home, Self-Care Activity: pelvic rest Diet: regular Patient Instructions: Antibiotic Form Stand Alone Forms: General Discharge Information Follow-up/Referrals: Juliano Shepard MD [Physician] - 1 Week Discharge Medications: Continued PNV [id number] fumarate-FA [] 28 mg iron- 800 mcg Tablet 1 tablet PO DAILY RF: 0 ferrous sulfate 325 mg (65 mg iron) Tablet 325 mg PO DAILY RF: 0 Date of admission: 03/10/21 06:00 Primary Care Provider: PHYSICIAN,CONTRACT ADMINISTRATION MANAGER Admitting Provider: Juliano Shepard Attending physician on admission: Juliano Shepard Condition: Stable
[2021-03-11] MEDS: MULTIVIT/MIN/PREN/FOL AC/IRON TABLET 1 TAB PO (09:04)
--- NOTE | 2021-03-11 11:08 | WPDANLDPN2 ---
Anes-Prog Note L&D Date/Time: 03/11/21 11:08 Comfortable throughout: labor and delivery Neuraxial method: epidural Epidural/Spinal procedure site: clean & non-tender Neuro status: Neuro function grossly intact. Cardiovascular status: normal Respiratory status: normal Airway patency: baseline Mental status: baseline Post-Op hydration status: normal Vital Signs: Last Vital Signs Temp 36.4 C 03/11/21 08:00 Pulse 73 03/11/21 08:00 Resp 16 03/11/21 08:00 BP 122/70 03/11/21 08:00 Pulse Ox 99 03/11/21 08:00 Pain score (VAS): 06/26 I/O: Intake & Output 03/10/21 03/11/21 03/11/21 23:59 07:59 15:59 Intake Total 240 Balance 240 Post-procedural complaints: none Patient feedback: Patient satisfied with anesthetic care.
[2021-03-11 12:30] VITALS: BP 118/74; PULSE 70; RESP 18; TEMP 36.3; O2SAT 100
[2021-03-13 08:57] VITALS: BP 143/86; PULSE 70; RESP 20; TEMP 36.7; O2SAT 100
== END 2021-03-11 15:20 | disposition home or self-care (01) | DRG 807 ==
LOC: ANHOB2 03-11 08:31 → ANHLDR 03-14 10:10 → ANHOB2 03-14 10:10
PROVIDERS: Advanced Practice Midwife; Admitting Provider Obstetrics & Gynecology; Visit Provider Obstetrics & Gynecology
DX: O10.92 Unspecified pre-existing hypertension complicating childbirth (principal); Z37.0 Single live birth; O76 Abnormality in fetal heart rate and rhythm complicating labor and delivery; Z3A.38 38 weeks gestation of pregnancy
CPT/HCPCS: 36415; 80053; 84550; 85014; 85018; 85025; 86592; 86850; 86900; 86901; 88307; A9270; J2590; J2795; J7120

== ENCOUNTER 2021-05-10 01:42 | Day surgery (SDC) | payer OTHER, SELFPAY ==
[2021-05-03 12:39] VITALS: BMI 39.4
--- NOTE | 2021-05-03 12:45 | PC.NURSE ---
Report to the Outpatient Waiting Room, entrance under the green pavilion located off [facility], at time 0730 on date 05/10/21. OR Time: 0930. - You and your visitor will be asked a series of questions to screen for COVID 19 for your protection. - A mask is required within the hospital. - Only one visitor is allowed at this time. Patient visitors will be guided where to wait when not with patient. Preoperative COVID Testing Requirements: No COVID Test needed if: (proof is required; if not received patient will have Rapid Test prior to entry) - Patient has received COVID Vaccine at least 14 days prior to procedure date or - Patient has positive COVID test result within last 90 days of surgery date. COVID Test needed if above criteria is not met If not COVID vaccinated a COVID test must be conducted within 72 hours of surgery and patient is asked to isolate self from time of testing until procedure. You will go to the [facility] for your COVID testing. The [facility] is located at the corner of [address] [facility]. You will only be called if COVID results are positive and your surgeon may reschedule your elective surgery date. Patients may have clear liquids (water, carbonated beverages, clear teas, apple juice) until 3 hours prior to surgery with a maximum of 20 ounces. - No food from midnight until time of surgery - Infants may have breast milk until 4 hours before surgery, infant formula 6 hours prior to surgery. - Children will be allowed to drink immediately following surgery. If applicable, please bring a bottle or sippy cup to assist with drinking. Juice, water, soda, and popsicles are readily available. For infants on formula, please bring formula the day of surgery. Pacifiers are allowed. Take the following medications with a SIP of water the morning of surgery: N/A Medications to discontinue per physician: N/A Date to take last dose: N/A Please no make-up, nail luxembourgish, hairspray, perfume, deodorant, or body powder the day of surgery. No jewelry (including any body piercings) or valuables the day of surgery, leave them at home. Please take a shower or bath the night before, or the morning of, surgery with an antibacterial soap. Wear comfortable, loose fitting clothing. Children are encouraged to wear pajamas. - Jewelry must be removed prior to entering the operating room. Rings and piercings that are not removed may be cut off. - The hospital will not accept responsibility for valuables. - Please leave all valuables, including medications, at home the day of surgery. If you are going home after surgery, a licensed tractor trailer driver must drive you home. - NO public transportation without another adult. - We recommend that an adult stay with you for 24 hours following discharge. - We also recommend that you do not drive, make important decision, drink alcoholic beverages, or take any drugs that were not prescribed by your health care provider for at least 24 hours after your discharge time. For Pediatric surgeries, we recommend two adults accompany the child home (only one inside the building at this time). Follow any additional instructions given to you from your surgeon. Telephone instructions given to STEPH BENNETT and asked if any additional questions and then verbalized understanding. Patient advised to call surgeon office or pre surgery nurse liaison [phone] if any additional questions.
[2021-05-10] VITALS (8 sets, daily range): BP systolic 109–137; BP diastolic 58–87; PULSE 50–73; RESP 16–18; TEMP 36.1; O2SAT 94–100
--- NOTE | 2021-05-10 07:20 | WPDHPUPDATE1 ---
History and Physical Update Update Date/Time: 05/10/21 07:20 History and Physical has been reviewed, including an updated exam of the patient. There are NO changes in the patient's condition. Risks, benefits, and alternatives have been discussed and questions answered. Patient agrees to proceed with procedure.
[2021-05-10] MEDS: LACTATED RINGERS 1,000 ML 30 ML IV CONT ×2 (08:14→09:32)
[2021-05-10] MEDS: ACETAMINOPHEN 500 MG TABLET 1000 MG PO (08:15)
--- NOTE | 2021-05-10 08:15 | WPDHPUPDATE1 ---
History and Physical Update Update Date/Time: 05/10/21 08:15 with fulguration of oviducts History and Physical has been reviewed, including an updated exam of the patient. There are NO changes in the patient's condition. Risks, benefits, and alternatives have been discussed and questions answered. Patient agrees to proceed with procedure.
[2021-05-10] MEDS: KETOROLAC 15 MG/ML VIAL (*BKC) IV PUSH (08:16)
--- NOTE | 2021-05-10 08:17 | P.PNAN_ITS ---
Anes - Initial Pre Proc Eval Procedure: Operation Date: 05/10/21 09:30 Proposed Procedures p Bilateral Laparoscopic Tubal Ligation with Fulguration of Oviducts - Juliano Shepard MD Date/Time: 05/10/21 08:17 Surgeon: Juliano Shepard MD Pre Op Diagnosis: desires sterilization Patient Data Age: 25 Gender: F Height: 1.63 m Weight: 107 kg Last Vital Signs Temp 36.1 C L 05/10/21 07:46 Pulse 73 05/10/21 07:46 Resp 16 05/10/21 07:46 BP 137/78 05/10/21 07:46 Pulse Ox 98 05/10/21 07:46 Allergies Allergy/AdvReac Type Severity Reaction Status Date / Time amoxicillin Allergy Intermediate rash Verified 05/10/21 08:00 latex Allergy Unknown Swelling Verified 05/10/21 08:00 Penicillins Allergy Unknown Rash Verified 05/10/21 08:00 Home Medications Medication Instructions Recorded Confirmed Type No Home Medications 05/03/21 05/03/21 History Patient hx anesthesia problems: none Family hx anesthesia problems: none Results Review: All pre-operative results and documents have been reviewed as part of the pre-operative evaluation. [facility] Past Medical History Medical History Hypertension Family History Family History Grandparent Diabetes mellitus Mother Diabetes mellitus Arthritis Social History Social History Smoking status: Never smoker Second hand tobacco smoke exposure: No Alcohol intake: never Substance use: never Substance use type: does not use Living arrangements: with family Spiritual care concerns: No Anes - Eval Final PreProcedure Day of Procedure 05/10/21 08:17 Patient weight: morbidly obese Heart: regular rate and rhythm Lungs: clear to auscultation Airway: Mallampati scale class II Neurological: alert and oriented Last oral intake: >/= 8 hours ASA classification: III Emergent: no Anesthetic plan: proceed Anesthesia type and monitoring: general ETT and standard monitoring Results Review: All pre-operative results and documents have been reviewed as part of the pre-operative evaluation. Informed Consent: The patient's anesthetic plan and its attendant risks and benefits were discussed with the patient/family/POA. Questions were solicited and answers provided to the satisfaction of the patient/family/POA.
--- NOTE | 2021-05-10 09:30 | WPDHPUPDATE1 ---
History and Physical Update Update Date/Time: 05/10/21 09:30 History and Physical has been reviewed, including an updated exam of the patient. There are NO changes in the patient's condition. Risks, benefits, and alternatives have been discussed and questions answered. Patient agrees to proceed with procedure.
--- NOTE | 2021-05-10 09:31 | P.OP_ITS ---
Procedure Note - Detailed Date of Procedure 05/10/21 Pre-op Diagnosis desires sterilization Post-op Diagnosis same Procedure Performed Laparoscopic bilateral tubal ligation Surgeon Juliano Shepard MD Marketing Support Manager none Anesthesia general Indications Unwanted fertility Findings Normal pelvic anatomy Description of Procedure The patient was taken the operating room. She has prepped draped in the dorsal lithotomy position after induction of general anesthesia. A 5 mm left upper quadrant incision was made with a scalpel on the abdominal skin. A 5 mm trocar was inserted intra-abdominal cavity. A pneumoperitoneum was achieved. This was done under direct visualization of the scope. An infraumbilical trocar was placed identical fashion. The fallopian tubes were grasped with bipolar caut rosalie. They were completely cauterized. A 1.5 cm area of each fallopian tube was cauterized/desiccated. It was done bilaterally identical fashion. The pneumoperitoneum was reduced. The trocars removed. The skin was closed with subcuticular 4 Monocryl cover Dermabond. The patient tolerated the procedure well. She was taken to cover room stable condition. Sponge lap and needle counts were correct x2. Estimated Blood Loss 10 Drains No Packing No Pathology none sent Complications No immediate complications Condition stable Disposition PACU
[2021-05-10] MEDS: SCOPOLAMINE 1.5 MG PATCH TRANSDERM (09:43)
[2021-05-10] MEDS: ONDANSETRON INJ 4 MG/2 ML VIAL IV PUSH (09:56)
[2021-05-10] MEDS: fentaNYL CITRATE INJ (*CRX) 100 MCG/2 ML VIAL 25 MCG IV PUSH (10:12)
--- NOTE | 2021-05-10 10:21 | P.OP_ITS ---
Procedure Note - Detailed Date of Procedure 05/10/21 Pre-op Diagnosis desires sterilization Post-op Diagnosis same Procedure Performed Suction D&C Surgeon Juliano Shepard MD Anesthesia MAC Indications missed Findings normal-appearing vulva vagina and cervix to. Moderate amount of products conception within the uterus. 8 cm uterus Description of Procedure the patient was taken the operating room. She was prepped and draped in dorsal lithotomy position after induction of mac anesthesia. A speculum was placed in the vagina. Cervix grasped with tenaculum. The cervix was dilated to about 1 cm Using Hanks dilators. A 8. Danish curved curette was used to perform suction D&C. The curette was introduced and vacuum was applied. The curette was removed over all surfaces of the intrauterine cavity multiple times. This was done until all the surfaces were clear and had the familiar grainy texture they can be felt through the instrument. A sharp curette was then used to curettage all the surfaces. The suction cup was then reapplied 1 more time to remove any debris. The instruments were removed. The speculum and tenaculum were removed. The patient tolerated the procedure well. She was taken recovery room stable condition. Estimated Blood Loss 10 Drains No Packing No Pathology yes Complications No immediate complications Condition stable Disposition PACU
[2021-05-10] MEDS: diphenhydrAMINE HCl INJ 50 MG/ML VIAL 12.5 MG IV PUSH (10:50)
[2021-05-10] MEDS: oxyCODONE HCL (*CRX) 5 MG TAB IR PO (10:50)
== END 2021-05-10 11:40 | disposition home or self-care (01) ==
PROVIDERS: Visit Provider Obstetrics & Gynecology
PROC: (CPT 58671; principal; 2021-05-10 09:30)
DX: O02.1 Missed abortion (principal); Z30.2 Encounter for sterilization; I10 Essential (primary) hypertension; E66.01 Morbid (severe) obesity due to excess calories; Z68.41 Body mass index [BMI] 40.0-44.9, adult
CPT/HCPCS: 58670; 59820; A9270; J1100; J1200; J1885; J2250; J2405; J2704; J2710; J3010; J7120

== ENCOUNTER 2022-02-14 13:22 | Emergency (ER) | payer OTHER, SELFPAY ==
[2022-02-14 13:28] VITALS: BP 130/78; PULSE 80; RESP 16; TEMP 36.3; O2SAT 100
--- NOTE | 2022-02-14 14:12 | ED.URI ---
HPI - URI/Sore Throat General Chief Complaint: Upper Respiratory Infection Stated Complaint: congestion ear pain Time Seen by Provider: 02/14/22 14:00 Source: patient and RN notes reviewed Mode of arrival: ambulatory Limitations: no limitations History of Present Illness HPI Narrative: 26-year-old female presented for complaint of bilateral ear pain and sinus congestion for 2 days. She states that she had a runny nose that has resolved. She has not taken anything for symptoms. Endorses having COVID 3 weeks ago. Denies shortness of breath, wheezing, nausea, vomiting, diarrhea, fevers or chills. Endorses her children are sick as well. MD elicited complaint: cough Related Data Home Medications Medication Instructions Recorded Confirmed No Home Medications 02/14/22 02/14/22 Allergies Allergy/AdvReac Type Severity Reaction Status Date / Time amoxicillin Allergy Intermediate rash Verified 02/14/22 14:02 latex Allergy Unknown Swelling Verified 02/14/22 14:02 Penicillins Allergy Unknown Rash Verified 02/14/22 14:02 Review of Systems Review of Systems: CONSTITUTIONAL: denies malaise, chills, sweats, fever EYES: Denies visual changes, redness, or discharge ENT: Reports rhinorrhea, congestion, otalgia CARDIOVASCULAR: Denies chest pain, palpitations, edema RESPIRATORY: Denies dyspnea GASTROINTESTINAL: Denies abdominal pain, nausea, vomiting, diarrhea SKIN: Denies rash or itching PMFSH Past Medical History Medical History Hypertension Family History Family History Grandparent Diabetes mellitus Mother Diabetes mellitus Arthritis Social History Social History Smoking status: Never smoker Second hand tobacco smoke exposure: No Alcohol intake: never Substance use: never Substance use type: does not use Spiritual care concerns: No Exam Narrative: GENERAL: well-appearing EYES: conjunctivae clear ENT: Mucous membranes moist. TMs pearly short with dull light reflex bilaterally; no tragal tenderness. Oropharynx erythematous without lesions or exudate CHEST: Clear to auscultation, breath sounds equal. HEART: Regular rate and rhythm. No murmur heard. SKIN: Warm, dry, no rash. NEURO: Alert and oriented x3. PSYCH: Normal mood and affect Course Course Emergency Course: Patient is aware of diagnosis, understands and agrees to treatment plan. Anticipatory guidance given. Patient agrees to follow-up as directed and is aware of reasons to seek care at the emergency department. Portions of this record may have been created with voice recognition software Level of Care: Express Care Visit Vital Signs Vital signs: Vital Signs Temperature 97.3 F L 02/14/22 13:28 Pulse Rate 80 02/14/22 13:28 Respiratory Rate 16 02/14/22 13:28 Blood Pressure 130/78 02/14/22 13:28 Pulse Oximetry 100 02/14/22 13:28 Oxygen Delivery Room Air 02/14/22 13:28 Temperature 97.3 F L 02/14/22 13:28 Pulse Rate 80 02/14/22 13:28 Respiratory Rate 16 02/14/22 13:28 Blood Pressure 130/78 02/14/22 13:28 Pulse Oximetry 100 02/14/22 13:28 Oxygen Delivery Room Air 02/14/22 13:28 reviewed MDM - URI/Sore Throat MDM Narrative Medical decision making narrative: Patient was concerned for bilateral ear infection, however negative on exam. Advised supportive measures and signs/symptoms to go to the ER. Pt is appropriate for outpt treatment and f/u. Differential Diagnosis Differential diagnosis: Likely upper respiratory infection, otitis media, sinusitis and viral infection Discharge Plan Discharge Clinical Impression: Allergic rhinitis Patient Disposition: Home, Self-Care Condition: Stable Instructions: Antibiotic Form, Allergic Rhinitis (ED) Additional Instructions: Recommend Flonase spray and Zyrtec (or Claritin
== END 2022-02-14 15:03 | disposition home or self-care (01) ==
PROVIDERS: Emergency Provider Nurse Practitioner Family
DX: J30.9 Allergic rhinitis, unspecified (principal); I10 Essential (primary) hypertension
CPT/HCPCS: 99211; G0463

== ENCOUNTER 2023-04-08 13:25 | Emergency (ER) | payer OTHER, MEDICAID, SELFPAY ==
[2023-04-08 13:31] VITALS: BP 162/99; PULSE 97; RESP 16; TEMP 37.1; O2SAT 97
--- NOTE | 2023-04-08 13:31 | ED.EYEPROB ---
HPI - Eye Problem General Chief complaint: Eye Problems Stated complaint: [place] eye Time Seen by Provider: 04/08/23 13:30 Source: patient Mode of arrival: ambulatory Limitations: no limitations History of Present Illness HPI Narrative: Hannah is a 27-year-old female patient presenting to the clinic today with complaints of possible pinkeye to bilateral eyes. Symptoms started yesterday. Reports he is having itching burning and some green drainage coming from the bilateral eyes. States that her children had conjunctivitis last week. Related Data Allergies Allergy/AdvReac Type Severity Reaction Status Date / Time amoxicillin Allergy Intermediate rash Verified 04/08/23 13:41 latex Allergy Unknown Swelling Verified 04/08/23 13:41 Penicillins Allergy Unknown Rash Verified 04/08/23 13:41 Review of Systems Review of Systems: Pertinent positives per HPI. Patient denies any fever, chills, rash, headache, visual changes, dizziness, cough, runny nose, sore throat, shortness of breath, chest pain, palpitations, nausea, vomiting, diarrhea, constipation, abdominal pain, or any urinary issues. PMFSH Past Medical History Medical History Hypertension Family History Family History Grandparent Diabetes mellitus Mother Diabetes mellitus Arthritis Social History Social History Smoking status: Never smoker Second hand tobacco smoke exposure: No Alcohol intake: never Substance use: never Substance use type: does not use Living arrangements: with family Spiritual care concerns: No Comments At the time of my signature, I reviewed and agree with the nursing past medical, surgical, social, and family history. There is no relevant family history pertinent to the patient complaint. Exam Narrative: General: Well-developed, well nourished, in no apparent distress Head: Normocephalic, atraumatic Eyes: Pupils equally round and reactive to light bilaterally, EOM intact, sclera and conjunctive injected, brain mucopurulent discharge, lids mild swelling Ears: TMs intact and clear, ear canals clear, no drainage, grossly hearing normal. Nose: Nares patent, no discharge, no inflammation, no sinus tenderness. Mouth: Oropharynx without lesions or masses, good dentition, MMM. Neck: Supple, trachea midline, no enlargement of anterior or posterior cervical nodes, no thyroid masses or goiter palpable. Cardio: Regular rate and rhythm, s1 and s2 normal, no murmur appreciated. Resp: Clear to auscultation bilaterally anteriorly and posteriorly, no rhonchi, rales, wheezing or rubs Course Course Emergency Course: Portions of this record may have been created with voice recognition software. Level of Care: Express Care Visit Vital Signs Vital signs: Vital signs reviewed MDM - Eye Problem MDM Narrative Medical decision making narrative: At the time of visit patient is resting comfortably on the exam table. I suspect patient has bilateral conjunctivitis. Prescription for tobramycin eyedrops was sent to the pharmacy. Supportive measures were discussed with the patient she voiced understanding discharge instructions agrees to treatment plan. Differential Diagnosis Differential diagnosis: Likely corneal abrasion, conjunctivitis, acute iritis, hyphema, subconjunctival hemorrhage and corneal ulcer Discharge Plan Discharge Clinical Impression: Conjunctivitis Patient Disposition: Home, Self-Care Condition: Stable Instructions: Antibiotic Form, Conjunctivitis (ED) Additional Instructions: Conjunctivitis is considered contagious for 24 hours while on the antibiotic. Practice good hand washing techniques Avoid touching eyes Instill eyedrops as prescribed-tobramycin May use warm moist washcloth to help remove eye discharge If eyes are
== END 2023-04-08 13:46 | disposition home or self-care (01) ==
PROVIDERS: Emergency Provider Nurse Practitioner Family
DX: H10.9 Unspecified conjunctivitis (principal); I10 Essential (primary) hypertension
CPT/HCPCS: 99213; G0463

== ENCOUNTER 2023-04-14 10:21 | Emergency (ER) | payer OTHER, MEDICAID, SELFPAY ==
[2023-04-14 10:37] VITALS: BP 122/76; PULSE 79; RESP 16; TEMP 36.7; O2SAT 98
--- NOTE | 2023-04-14 10:47 | ED.GENADULT ---
HPI - General Adult General Chief complaint: Upper Respiratory Infection Stated complaint: Swollen Tongue Time Seen by Provider: 04/14/23 10:47 Source: patient, RN notes reviewed and old records reviewed Mode of arrival: ambulatory Limitations: no limitations History of Present Illness HPI narrative: 27-year-old female presents to the [facility] with complaints of a swollen tongue last night. States that it feels like there is still a knot on the left lateral aspect of the tongue. States that she ate at a new restaurant last night. States that and she went to a haunted house last night. Denies any trouble breathing. No lip or tongue swelling appreciated at this time. No difficulty breathing. Maintaining own secretions Treatments prior to arrival: none Related Data Allergies Allergy/AdvReac Type Severity Reaction Status Date / Time amoxicillin Allergy Intermediate rash Verified 04/14/23 10:40 latex Allergy Unknown Swelling Verified 04/14/23 10:40 Penicillins Allergy Unknown Rash Verified 04/14/23 10:40 Review of Systems Review of Systems: All systems reviewed & are unremarkable except as noted in HPI and below Constitutional: Constitutional: Reports no additional constitutional complaints Eyes: Eyes: Reports no additional eye complaints ENT: Reports as per HPI Cardiovascular: Cardiovascular: Reports no additional cardiovascular complaints, Denies chest pain and Denies dyspnea Respiratory: Respiratory: Reports no additional respiratory complaints, Denies chest congestion, Denies cough and Denies dyspnea Gastrointestinal: Gastrointestinal: Reports no additional gastrointestinal complaints, Denies abdominal pain, Denies nausea and Denies vomiting Musculoskeletal: Musculoskeletal: Reports no additional musculoskeletal complaints Integumentary/Breasts: Skin/Breast: Reports system reviewed and no additional complaints, except as docu Neurologic: Reports system reviewed and no additional complaints, except as documented Psychiatric: Psychiatric: Reports no additional psychiatric complaints Allergic/Immunologic: Allergic/Immunologic: Reports no additional allergic/immunologic complaints [facility] Past Medical History Medical History Hypertension Family History Family History Grandparent Diabetes mellitus Mother Diabetes mellitus Arthritis Social History Social History Smoking status: Never smoker Second hand tobacco smoke exposure: No Alcohol intake: never Substance use: never Substance use type: does not use Living arrangements: with family Spiritual care concerns: No Comments At the time of my signature, I reviewed and agree with the nursing past medical, surgical, social, and family history. There is no relevant family history pertinent to the patient complaint. Exam Const: General: cooperative, healthy appearing, comfortable, no acute distress, well developed, alert and well nourished Nutritional Appearance: well nourished Orientation/consciousness: patient oriented x3 Limitations: no limitations HENMT: Head: normal to inspection Ears: hearing grossly normal bilaterally, external ears normal, TM's normal bilaterally, EAC's normal, mastoids normal and no periauricular adenopathy Face/Nose/Sinus: Normal external nose present, Normal nares present, Normal nasal mucous membranes and turbinates present, normal facial exam and face symmetric Face and sinus: normal facial exam, sinuses nontender and face symmetric Mouth: Yes Normal oral and palatal mucosa present, Yes lip normal, Yes tongue normal, Yes oropharynx normal, Yes moist mucous membranes, No drooling, No malodorous breath, No mouth trauma and No muffled voice Throat: posterior oropharynx normal and uvula midline Eyes: General: appearance normal, both eyes and all related structu
== END 2023-04-14 11:20 | disposition home or self-care (01) ==
PROVIDERS: Emergency Provider Nurse Practitioner
DX: J02.9 Acute pharyngitis, unspecified (principal); I10 Essential (primary) hypertension
CPT/HCPCS: 87081; 87880; 99213; G0463

== ENCOUNTER 2024-03-12 13:50 | Emergency (ER) | payer OTHER, SELFPAY ==
--- NOTE | 2024-03-12 13:59 | ED.URI ---
HPI - URI/Sore Throat General Chief Complaint: Upper Respiratory Infection Stated Complaint: SORE THROAT Time Seen by Provider: 03/12/24 14:00 History of Present Illness HPI Narrative: [age] year old female presented for complaint of sore throat. Onset yesterday. Reports painful swallow, mild chills and feeling achy. Denies cough, nausea, vomiting, diarrhea, fevers or chills. Took ibuprofen at 7:00 a.m.. Related Data Allergies Allergy/AdvReac Type Severity Reaction Status Date / Time amoxicillin Allergy Intermediate rash Verified 03/12/24 13:59 latex Allergy Unknown Swelling Verified 03/12/24 13:59 Penicillins Allergy Unknown Rash Verified 03/12/24 13:59 Review of Systems Review of Systems: CONSTITUTIONAL: Denies fever EYES: Denies visual changes, redness, or discharge. ENT: Reports sore throat Denies rhinorrhea, congestion, or otalgia. CARDIOVASCULAR: Denies chest pain, palpitations, or edema. RESPIRATORY: Denies dyspnea. GASTROINTESTINAL: Denies abdominal pain, nausea, vomiting, or diarrhea. SKIN: Denies rash, itching, or wounds. MUSCULOSKELETAL: Denies back pain, joint pain, or myalgia. NEUROLOGIC: Denies headache PMFSH Past Medical History Medical History Hypertension Family History Family History Grandparent Diabetes mellitus Mother Diabetes mellitus Arthritis Social History Social History Smoking status: Never smoker Second hand tobacco smoke exposure: No Alcohol intake: never Substance use: never Substance use type: does not use Living arrangements: with family Spiritual care concerns: No Exam Narrative: GENERAL: well-appearing, no acute distress. EYES: conjunctivae clear ENT: Mucous membranes moist. TM pearly short with normal light reflex bilaterally; no tragal tenderness. Oropharynx erythematous without lesions. Tonsils enlarged 2+ without exudate. No drooling, no hoarseness, no trismus, uvula midline. No tripod positioning, hot potato voice, or soft palate swelling. NECK: Supple. No lymphadenopathy CHEST: Clear to auscultation, breath sounds equal. No respiratory distress, speaks in full sentences. HEART: Regular rate and rhythm. No murmur heard. SKIN: Warm, dry, no rash. NEURO: Alert and oriented x3. Course Course Emergency Course: Patient is aware of diagnosis, understands and agrees to treatment plan. Anticipatory guidance given. Patient agrees to follow-up as directed and is aware of reasons to seek care at the emergency department. Portions of this record may have been created with voice recognition software Level of Care: Express Care Visit MDM - URI/Sore Throat MDM Narrative Medical decision making narrative: POS strep result reviewed with pt. Advise supportive treatments. Patient is appropriate for outpatient treatment and follow-up. Differential Diagnosis Differential diagnosis: Likely upper respiratory infection, viral infection and pharyngitis Discharge Plan Discharge Clinical Impression: Strep pharyngitis Patient Disposition: Home, Self-Care Condition: Stable Instructions: Antibiotic Form, Strep Throat (ED) Additional Instructions: - Take the antibiotic as directed. Fever and sore throat typically resolve within one to three days. Most patients can return to work, after 12 to 24 hours of antibiotic therapy, provided you are fever free and otherwise well. -Eat and drink things that are easy to swallow, like soft foods, cool liquids, tea with honey, or popsicles . -Salt water gargles and/or may use topical anesthetic ( Chloraseptic spray) or lozenges to relieve dryness or throat pain -Alternate Tylenol and ibuprofen as needed for pain and fever as directed. -Frequent hand washing or hand carrier operator is one of the best ways to prevent spread of infection. Throw
[2024-03-12 14:07] VITALS: BP 152/87; PULSE 101; RESP 16; TEMP 36.9; O2SAT 100
[2024-03-12 14:16] LABS: EDSTREPNEGPOS1 Positive (Negative)
== END 2024-03-12 14:19 | disposition home or self-care (01) ==
PROVIDERS: Emergency Provider Nurse Practitioner Family
DX: J02.0 Streptococcal pharyngitis (principal); I10 Essential (primary) hypertension
CPT/HCPCS: 87880; 99213; G0463

== ENCOUNTER 2025-05-11 09:13 | Outpatient (CLI) | payer OTHER, SELFPAY ==
--- OUTSIDE RECORDS SUMMARY | 2025-05-11 09:50 | XMS_ITS | Encounter Summary ---
Author Organization [facility] Address [address] [facility] [place] [address] Care Team Providers Care Manager Customer Service Name Role Phone John Shepard MD Primary Care Provider [phone] Encounter Details Date Type Department Care Team (Late st Contact Info) Description 12/10/2024 Lab Requisition [facility] - DermPath Lab [address] 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 Answer Date of Assessment Author No 11/04/2018 5:56 AM Gissel Melo RN * Is person blind or have serious difficulty seeing? Answer Date of Assessment Author No 11/04/2018 5:56 AM Gissel Melo RN * Does person have serious difficulty walking/climbing stairs? Answer Date of Assessment Author No 11/04/2018 5:56 AM CDT Gissel Berumen RN * Does person have difficulty dressing/bathing? Answer Date of Assessment Author No 11/04/2018 5:56 AM CDT Gissel Berumen RN * Does person have difficulty doing errands alone? Answer Date of Assessment Author No 11/04/2018 5:56 AM [place]OD[place]T Gissel Berumen RN documented as of this encounter Mental Status * Does person have difficulty concentrating/remembering/making decisions? Answer Entry Date Author No 11/04/2018 5:56 AM CDT Gissel Berumen RN documented in this encounter Plan of Treatment Not on file documented as of this encounter Procedures Procedure Name Priority Date/Time Associated Diagnosis Comments DERMATOPATHOLOGY Routine 12/10/2024 1:32 PM CDT documented in this encounter Results * DERMATOPATHOLOGY (12/10/2024 1:32 PM CDT) Case Report Dermatopathology Report Case: [id number] Authorizing Provider: Celine Lindsay MD Collected: 12/10/2024 01:32 PM Ordering Location: [facility] - Received: 12/14/2024 06:55 AM DermPath Lab Pathologist: Rosemary Vargas MD Specimen: Skin, back 2:44 PM CDT DERMATOPATHOLOGY LABORATORY Final Diagnosis Specimen A. SKIN, back: INTRADERMAL NEVUS, NEUROTIZED (D22.9) 5 2:44 PM CDT DERMATOPATHOLOGY LABORATORY at 1444 CDT Clinical History Nevus; R/O Atypia 2:44 PM CDT DERMATOPATHOLOGY LABORATORY Gross Description Specimen A: Received is one formalin filled container labeled with the patient's name and designated back. The specimen consists of a shave biopsy measuring 7x6x3 mm. Jar 0. 2:44 PM CDT DERMATOPATHOLOGY LABORATORY Microscopic Description Specimen A. SKIN, back: Sections show nests, cords, and strands of cytologically bland melanocytes that mature with descent into the dermis. There are areas in which the melanocytes have a neuroid appearance. 5 2:44 PM CDT DERMATOPATHOLOGY LABORATORY Disclaimer An external and internal positive and negative controls are appropriate for the histochemical, immunohistochemical and immunofluorescence stain(s) in this case (if any), except where stated explicitly. The performance characteristics of the stain(s) cited in this report were developed and its performance characteristic determined by the Dermatopathology Laboratory at [facility], directed by Dr. Tawio Vargas. These tests need not be, and therefore are not, approved by the [place] Food and Drug Administration. The tests are used for clinical purposes. Billing Codes Specimen Charges Stain Charges 69942 1 5 2:44 PM CDT DERMATOPATHOLOGY LABORATORY Embedded Images 5 2:44 PM CDT DERMATOPATHOLOGY LABORATORY Pathology/Cytolo gy TISSUE SPECIMEN FROM SKIN / Unknown 12/10/2024 1:32 PM CDT 12/14/2024 6:55 AM CDT Celine Lindsay MD LAB - PATHOLOGY/CYTOLOGY ORD ERABLES Final Result DERMATOPATHOLOGY LABORATORY [facility] - Department of Dermatology [facility] Medicine [address] [place] [address], [address] [phone] documented in this encounter Visit Diagnoses Not on filedocumented in this encounter Care Teams Manager Customer Service Relationship Specialty Start Date End Date John Shepard MD [address] [place] [id number] PCP - General Obstetrics and Gynecology 09/15/18 documented as of this encounter
--- OUTSIDE RECORDS SUMMARY | 2025-05-11 09:50 | XMS_ITS | Clinical Summary ---
Author Organization [facility] Address [address] [place] [address] Care Team Providers Care Legal Nurse Consultant Name Role Phone John Shepard MD Primary Care Provider [phone] Source Comments [facility],non-owned Affiliates and Associated Physician Practices is amultiple site organization consisting of ambulatory clinics and hospital sitesin [place], [place], [place] and [place]. This disclosure is being madepursuant to the Care Everywhere program and may not contain all information available regarding this patient. Last updated 18.[facility] Allergies Active Allergy Reactions Criticality Noted Date Comments Amoxicillin Rash High 08/26/2018 Latex Swelling Medium 08/26/2018 Medications * Be aware that medications may not be up to date on this document. Alwaysverify current medications with the patient. Vit-Fe Fumarate-FA ( VITAMIN) 28-0.8 MG tablet Take 1 tablet by mouth once daily Active pyridoxine (VITAMIN B-6) 25 MG tabletIndicatio ns:Nausea and/or Vomiting in Take 50 mg by mouth once daily Reasons: Nausea and Vomiting in Active Active Problems Problem Noted Date Diagnosed Date Hx of preeclampsia, prior , currently p regnant 11/09/2020 Assessment & Plan (11/09/2020 11:14 AM CDT): Patient did not start aspirin as recommended--she was unaware of previous history of preeclampsia and did not think she needed aspirin. Reviewed previous diagnosis with patient. At risk for recurrent preeclampsia due to asthma and obesity. Recommendation 1. 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 There is a portion of the placenta which is not covered by chorionic plate which is called the extrachorialis. The reported prevalence ranges from 0.5-21 percent and can be partial versus complete. The etiology is unclear; however most series attribute the anomaly to abnormal implantation. There are reports of recurrence in future pregnancies. The extrachorialis may bleed easily. This placental anomaly is associated with various adverse outcomes, such as: early miscarriage, antepartum hemorrhage /bleeding (most common--the bleeding may be from placental abruption or even hemorrhage), watery vaginal discharge (which should be differentiated from ruptured amniotic membranes), oligohydramnios, demise, premature delivery, non-reassuring heart rate tracing, low scores, low weight newborns, higher rate of congenital malformations, mortality, hemorrhage, retained placenta and endometritis. Current alvarez with history of congenital heart disease in prior child, antepartum 09/12/2020 Assessment & Plan (11/09/2020 11:12 AM CDT): Recommendations 1. Plan for echocardiogram with Dr Villalobos [Professor Of Violin who took care of youngest child] at 28 weeks Maternal morbid obesity, antepartum 09/12/2020 Overview (09/28/2020): Early GCT: 89, 09/22/20@13w6d Assessment & Plan (11/09/2020 11:16 AM CDT): Passed early GCT. Recommendations 1. MsAFP before 58o2y--mybkongowke given 2. Serial growth every 4 weeks 3. Repeat screen for GDM at 28 weeks 4. Weekly BPP starting at 36 weeks due to BMI > 40 5. Limit total weight gain to < 15 lbs 6. Would benefit from and weight reduction Resolved Problems Problem Noted Date Diagnosed Date Resolved Date Uterine contractions during 11/04/2018 09/12/2020 Depression screen 09/15/2018 09/12/2020 Overview (10/09/2018): 09/15/2018 Cuba Murguia was screened for depression using the [place] Depression Scale (EPDS) at her [facility] initial evaluation on 09/15/2018. Her initial score at baseline was 0. Based off of her score of 0, Harshoes not warrant follow up. Patient will continue to be screened throughout , at intervals no closer than two weeks, for continued surveillance and early identification of depression until delivery. Patient denies mental health history. 10.09.18: Follow-up EPDS score=0 complicated by fet al congenital heart disease 09/15/2018 09/12/2020 abnormality in - VSD 08/26/2018 11/11/2018 Overview (10/10/2018): Images from the original note were not included. [facility] PATIENT--PLEASE CALL [phone] (ex 2) IF TRIAGED OR ADMITTED Care Provider: Dr. 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 PGE is not needed and initial echocardiogram can be performed at [place]. If the baby has significant desaturations or hemodynamic issues, then could consider transfer to [facility]. I reviewed with the family that if the saturations are adequate (>80%) in the period, then we may simply need to plan for outpatient monitoring and it is possible that baby may not need intervention. If the right ventricular output is inadequate over time, then Azam palliation could be needed in the future. Cattle Broker: Dr. Padmaja Salazar Planned surveillance: Repeat US & echo on 10.09. Weekly testing (BPP/NST) at [place], with growth in one month. Released from [facility] 10.09.18 Delivery location, mode, and GA: [facility] at 39 weeks. IOL on 11.11.18 at 0900 Autopsy indicated: Genetics note: Shell Assembler Concerns: 09/15/18- There are no social service concerns identified at this time Care plan based on evaluation and is subject to change based on assessment. See Images or Cardiac under Chart Review for US/ ECHO/ MRI reports. 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 Gender Identity Not on file Sexual Orientation Not on file Last Filed Vital Signs Vital Sign Reading Time Taken Comments Blood Pressure 123/74 11/09/2020 10:46 AM CDT Pulse 72 11/09/2020 10:46 AM CDT Temperature 36.5 C (97.7 F) 09/14/2020 11:28 AM CDT Respiratory Rate 18 11/06/2018 8:10 AM CDT Oxygen Saturation 100% 11/05/2018 9:25 PM CDT Inhaled Oxygen Concentration - - Weight 110.7 kg (244 lb) 11/09/2020 10:46 AM CDT Height 160 cm (5' 3) 09/14/2020 11:28 AM CDT Body Mass Index 43.22 09/14/2020 11:28 AM CDT Plan of Treatment Health Maintenance Due Date Last Done Comments HEPATITIS C SCREENING 09/16/2015 HEPATITIS B VACCINE (1 of 3 - 19+ 3-dose series) 2016 PAP SMEAR 08/27/2023 08/26/2020 DEPRESSION SCREENING 06/17/2024 HPV VACCINE (1 - 3-dose SCDM series) 2024 COVID-19 VACCINE ( - 2024- season) 2025 INFLUENZA VACCINE (#1) 2025 9, 04/12/2017, 06/13/2016, Additional history exists DTAP/TDAP/TD VACCINES (2 - Td or Tdap) 11/05/2028 11/05/2018 ZOSTER VACCINE (1 of 2) 09/21/2047 HIV SCREENING Completed 08/26/2020 HIB VACCINE Aged Out No longer eligi ble based on patient's age to complete this topic MENINGOCOCCAL (Group B) VACCINE SHARED DECISION-MAKING Aged Out No longer eligible based on patient's age to complete this topic MENINGOCOCCAL GROUPS A/C/Y/W VACCINE Aged Out No longer eligible based on patient's age to complete this topic PNEUMOCOCCAL VACCINE Aged Out No long er eligible based on patient's age to complete this topic Procedures Procedure Name Priority Date/Time Associated Diagnosis Comments GLUCOSE CHALLENGE 09/22/2020 10: 48 AM CDT from Last 3 Months or Most Recently Relevant to Health Maintenance Results * GLUCOSE CHALLENGE (09/22/2020 10:48 AM CDT) Pathologist [facility] GTT 1Hr 89 <135 mg/dL [facility] Comment: Test Performed at: [employer] [facility] [address] [place] [address] YAYA WILLIAMSON DO,MPH 09/22/2020 10:4 8 AM CDT 09/22/2020 10:48 AM CDT Neo Robles MD LAB - CHEMISTRY ORDERABLES Keysha martinez Result [facility] [id number] [place] [address] from Last 3 Months or Most Recently Relevant to Health Maintenance Insurance [employer] MEDICAID [place] [facility] Address: [facility] [address] [place] [address] Advance Directives * Full Code (Latest Code Status on File) Date Activated Date Inactivated Comments 11/04/2018 2:20 AM 11/06/2018 1:30 PM Care Teams Legal Nurse Consultant Relationship Specialty Start Date End Date John Shepard MD [address] [place] [address] PCP - General Obstetrics and Gynecology 09/15/18
[2025-05-11 19:59] LABS: Alanine Aminotransferase 18 U/L (6-35); Albumin Level 4.5 g/dL (3.5-5.1); Alkaline Phosphatase 49 U/L (38-126); Anion Gap 7 mmol/L (4-12); Aspartate Amino Transferase 46 U/L (14-36); Bilirubin,Total 0.6 mg/dL (0.2-1.3); Blood Urea Nitrogen 15 mg/dL (7-17); Calcium 8.9 mg/dL (8.4-10.2); Carbon Dioxide 26 mmol/L (22-30); Chloride 104 mmol/L (98-107); Cholesterol 166 mg/dL (0-200); Estimated Glomerular Filt Rate > 60; Glucose 73 mg/dL (65-110); HDL Direct 44 mg/dL; Potassium 4.2 mmol/L (3.4-5.0); Sodium 137 mmol/L (137-145); Total Protein 7.5 g/dL (6.3-8.2); Triglycerides 68 mg/dL (<150)
[2025-05-11 20:45] LABS: Hematocrit 36.9 % (37.0-47.0); Hemoglobin 11.3 g/dL (12.0-15.0); Immature Granulocyte Percent A 0.1 % (0-0.5); Lymphocytes Absolute Auto 1.59 K/mm3 (0.9-3.2); Mean Corpuscular HGB Conc 30.6 g/dl (32-36); Mean Corpuscular Hemoglobin 24.8 pg (26-34); Mean Corpuscular Volume 80.9 fl (80-100); Nucleated Red Blood Cells Absolute Auto 0.000 K/mm3 (0.0-0.012); Nucleated Red Blood Cells Perc 0.0 % (0.0-0.2); Platelet Count Result 253 k/mm3 (150-375); Red Blood Count 4.56 M/mm3 (4.2-5.4); White Blood Count 7.0 K/mm3 (4.5-10.0)
[2025-05-11 21:12] LABS: Iron 47 ug/dL (37-170)
[2025-05-11 21:20] LABS: Thyroid Stimulating Hormone 7.220 uIU/mL (0.465-4.680)
[2025-05-11 21:21] LABS: Percent Iron Saturation 13 % (20-50)
[2025-05-11 21:39] LABS: Vitamin B12 281.0 pg/mL (239-931)
== END 2025-05-11 09:14 | disposition home or self-care (01) ==
LOC: ANHGOSHLAB 09:14
DX: Z13.220 Encounter for screening for lipoid disorders (principal); R53.83 Other fatigue; D64.9 Anemia, unspecified; E55.9 Vitamin D deficiency, unspecified
CPT/HCPCS: 36415; 80053; 80061; 82172; 82306; 82607; 82746; 83540; 83550; 84443; 85025

== ENCOUNTER 2025-05-18 08:40 | Outpatient (CLI) | payer OTHER, SELFPAY ==
--- OUTSIDE RECORDS SUMMARY | 2025-05-18 08:50 | XMS_ITS | Encounter Summary ---
Author Organization [facility] Address [address] [facility] [place] [address] Care Team Providers Care Employment Specialist Name Role Phone John Shepard MD Primary Care Provider [phone] Encounter Details Date Type Department Care Team (Late st Contact Info) Description 12/10/2024 Lab Requisition [facility] - DermPath Lab [address] 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 Taiwo Vargas. These tests need not be, and therefore are not, approved by the [place] Food and Drug Administration. The tests are used for clinical purposes. Billing Codes Specimen Charges Stain Charges 21608 1 5 2:44 PM CDT DERMATOPATHOLOGY LABORATORY Embedded Images 5 2:44 PM CDT DERMATOPATHOLOGY LABORATORY Pathology/Cytolo gy TISSUE SPECIMEN FROM SKIN / Unknown 12/10/2024 1:32 PM CDT 12/14/2024 6:55 AM CDT Celine Lindsay MD LAB - PATHOLOGY/CYTOLOGY ORD ERABLES Final Result DERMATOPATHOLOGY LABORATORY [facility] - Department of Dermatology [facility] Medicine [address] [place] [address], [address] [phone] documented in this encounter Visit Diagnoses Not on filedocumented in this encounter Care Teams Employment Specialist Relationship Specialty Start Date End Date John Shepard MD [address] [place] [phone] PCP - General Obstetrics and Gynecology 09/15/18 documented as of this encounter
--- OUTSIDE RECORDS SUMMARY | 2025-05-18 08:50 | XMS_ITS | Clinical Summary ---
Author Organization [facility] assistant Address [address] [place] [address] Care Team Providers Care Homeworker Name Role Phone John Shepard MD Primary Care Provider [phone] Source Comments [facility] assistant,non-owned Affiliates and Associated Physician Practices is amultiple site organization consisting of ambulatory clinics and hospital sitesin [place], [place], [place] and [place]. This disclosure is being madepursuant to the Care Everywhere program and may not contain all information available regarding this patient. Last updated 18.[facility] assistant Allergies Active Allergy Reactions Criticality Noted Date [...] 1. Plan for echocardiogram with Dr Villalobos [Hand Shaker who took care of youngest child] at 28 weeks Maternal morbid obesity, antepartum 09/12/2020 Overview (09/28/2020): Early GCT: 89, 09/22/20@13w6d Assessment & Plan (11/09/2020 11:16 AM CDT): Passed early GCT. Recommendations 1. MsAFP before 99q1s--llyiskixwhc given 2. Serial growth every 4 weeks [...] Murguia was screened for depression using the [place] Depression Scale (EPDS) at her [facility] initial evaluation on 09/15/2018. Her initial [...] from the original note were not included. [facility] PATIENT--PLEASE CALL [phone] (ex 2) IF TRIAGED OR ADMITTED Care Provider: Dr. 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 PGE is not needed and initial echocardiogram can be performed at [place]. If the baby has significant desaturations or hemodynamic issues, then could consider transfer to [facility]. I reviewed with the family that if the saturations are adequate (>80%) in the period, then we may simply need to plan for outpatient monitoring and it is possible that baby may not need intervention. If the right ventricular output is inadequate over time, then Azam palliation could be needed in the future. [place] Operator: Dr. Padmaja Salazar Planned surveillance: Repeat US & echo on 10.09. Weekly testing (BPP/NST) at [place], with growth in one month. Released from [facility] 10.09.18 Delivery location, mode, and GA: [facility] at 39 weeks. IOL on 11.11.18 at 0900 Autopsy indicated: Genetics note: Conference Translator Concerns: 09/15/18- There are no social service [...] on file Legal Sex Female 6:23 PM EDUCATION NURSE Gender Identity Not on file Sexual Orientation [...] GLUCOSE CHALLENGE (09/22/2020 10:48 AM CDT) Pathologist [facility] GTT 1Hr 89 <135 mg/dL [facility] Comment: Test Performed at: [facility] [id number] [place] [address] YAYA WILLIAMSON DO,MPH 09/22/2020 10:4 8 AM CDT 09/22/2020 10:48 AM CDT Neo Robles MD LAB - CHEMISTRY ORDERABLES Keysha martinez Result [facility] [id number] [place] [address] from Last 3 Months or Most Recently Relevant to Health Maintenance Insurance [facility] Address: [address] [place] [address] MEDICAID - [place] [facility] Advance Directives * Full Code (Latest Code Status on File) Date Activated Date Inactivated Comments 11/04/2018 2:20 AM 11/06/2018 1:30 PM Care Teams Homeworker Relationship Specialty Start Date End Date John Shepard MD [address] [place] [address] PCP - General Obstetrics and Gynecology 09/15/18
[2025-05-18 13:48] LABS: Hemoglobin A1C 5.2 % (<5.7)
[2025-05-18 13:49] LABS: Thyroid Stimulating Hormone 6.470 uIU/mL (0.465-4.680)
[2025-05-18 13:56] LABS: Ferritin 6.36 ng/mL (6.24-137)
[2025-05-19 07:09] LABS: FSH 5.8 mIU/mL (.); LH 4.3 mIU/mL (.)
[2025-05-20 01:07] LABS: Free Testosterone (Direct) 2.0 pg/mL (0.0-4.2)
== END 2025-05-18 08:41 | disposition home or self-care (01) ==
LOC: ANHGOSHLAB 08:41
DX: R73.01 Impaired fasting glucose (principal); N92.0 Excessive and frequent menstruation with regular cycle; R79.89 Other specified abnormal findings of blood chemistry
CPT/HCPCS: 36415; 82728; 83001; 83002; 83036; 83525; 84402; 84403; 84443; 86376

== ENCOUNTER 2025-05-24 13:52 | Outpatient (CLI) | payer OTHER, SELFPAY ==
--- NOTE | ~2025-05-24 | XR_ITS ---
EXAMINATION: XR foot LT 2V, 05/24/2025 14:00 HARD TILE SETTER APPRENTICE HISTORY: Pain in left foot x 1 month COMPARISON: No comparisons available. Findings: No acute fracture or malalignment. No significant degenerative changes. Soft tissues unremarkable. Impression: No acute fracture or malalignment. Reviewed, dictated and finalized at location P. TILE SETTER APPRENTICE Impression: No acute fracture or malalignment.
== END 2025-05-24 13:53 | disposition home or self-care (01) ==
LOC: GOSHIMG 13:53
PROVIDERS: PCP Internal Medicine; Visit Provider Internal Medicine
DX: M79.672 Pain in left foot (principal)
CPT/HCPCS: 73620